=== PATIENT | male | born 1985 | race Hispanic/Latino ===

== ENCOUNTER 2019-10-11 16:29 | Emergency (ER) | payer SELFPAY ==
--- NOTE | 2019-10-11 17:31 | ER ---
Nurse's Notes [facility] Name: Edward Kang Jr Age: 33 yrs Sex: Male : 1985 Arrival Date: 10/11/2019 Time: 16:30 Bed 17 Private MD: Diagnosis: Dental Pain Presentation: 10/10 16:37 Chief complaint: Patient states: "toothache, i was going to call the dentist, but i jd3 know if i got antibiotics it would go away.". Coronavirus screen: Client denies travel out of the [place] in the last 14 days. At this time, the client does not indicate any symptoms associated with coronavirus-19. Ebola Screen: Patient negative for fever greater than or equal to 101.5 degrees Fahrenheit, and additional compatible Ebola Virus Disease symptoms. Initial Sepsis Screen: Does the patient meet any 2 criteria? No. Patient's initial sepsis screen is negative. Does the patient have a suspected source of infection? No. Patient's initial sepsis screen is negative. Risk Assessment: Do you want to hurt yourself or someone else? Patient reports no desire to harm self or others. Onset of symptoms was October 11, 2019. 16:37 Method Of Arrival: Ambulatory jd3 16:37 Acuity: DANAE 4 jd3 Triage Assessment: 17:40 EENT: Reports. ca1 Historical: - Allergies: 16:40 No Known Allergies; jd3 - Home Meds: 16:40 None [Active]; jd3 - PMHx: 16:40 None; jd3 - PSHx: 16:40 None; jd3 - Immunization history:: Adult Immunizations up to date. - Social history:: Smoking status: Patient/guardian denies using tobacco, Stopped _ months ago 6. Screenin:20 Abuse screen: Denies threats or abuse. Denies injuries from another. Nutritional ca1 screening: No deficits noted. Tuberculosis screening: No symptoms or risk factors identified. Fall Risk None identified. Assessment: 17:20 Pain: Complains of pain in upper left second molar and upper left third molar Pain ca1 began 2-3 days ago. Neuro: Level of Consciousness is awake, alert, obeys commands, Oriented to person, place, time, situation. EENT: Dental caries noted in upper left second molar (#15). Derm: Skin is intact, is healthy with good turgor, Skin is pink, warm \\T\\ dry. Musculoskeletal: Circulation, motion, and sensation intact. Capillary refill < 3 seconds. 17:22 General: Appears in no apparent distress. comfortable, Behavior is calm, cooperative, ca1 appropriate for age. Vital Signs: 16:37 BP 124 / 80; Pulse 69; Resp 15; Temp 98.7; Pulse Ox 98% ; Weight 86.18 kg; Height 6 ft. jd3 (182.88 cm); Pain 8/10; 17:20 BP 107 / 72; Pulse 51; Resp 16 S; Pulse Ox 98% on R/A; ca1 16:37 Body Mass Index 25.77 (86.18 kg, 182.88 cm) j ED Course: 12:55 Patient has correct armband on for positive identification. Bed in low position. Call ca1 light in reach. Side rails up X 1. Pulse ox on. NIBP on. 16:30 Patient arrived in ED. ag5 16:40 Triage completed. jd3 16:41 Arm band placed on. [facility] 16:50 Mikel Baez PA is PHCP. [facility] 16:50 Carlos Massey MD is Attending Physician. [facility] 17:38 Mackenzie Keita RN is Primary Nurse. ca1 17:40 No provider procedures requiring assistance completed. Patient did not have IV access ca1 during this emergency room visit. Administered Medications: No medications were administered Outcome: 17:30 Discharge ordered by . [facility] 17:40 Discharged to home ambulatory. ca1 17:40 Condition: stable 17:40 Discharge instructions given to patient, Instructed on discharge instructions, follow up and referral plans. medication usage, Demonstrated understanding of instructions, follow-up care, medications, Prescriptions given X 2. 17:42 Patient left the ED. ca1 Signatures: Mikel Baez PA PA jmm Davies, Jonathon, RN RN Mackenzie Chaparro RN RN ca1 Reilly Smith ag5 Corrections: (The following items were deleted from the chart) 17:41 12:55 General: Appears in no apparent distress. comfortable, Behavior is calm, ca1 cooperative, appropriate for age, ca1 17:41 12:55 Pain: Complains of pain in upper left second molar and upper left third molar ca1 Pain began 2-3 days ago. ca1 17:41 12:55 Neuro: Level of Consciousness is awake, alert, obeys commands, Oriented to ca1 person, place, time, situation, ca1 17: 12:55 EENT: Dental caries noted in upper left second molar (#15) ca1 ca1 17: 12:55 Derm: Skin is intact, is healthy with good turgor, Skin is pink, warm \\T\\ dry. ca1 ca1 17: 12:55 Musculoskeletal: Circulation, motion, and sensation intact. Capillary refill < 3 ca1 seconds, ca1 17: 12:55 Pain: Complains of pain in upper left second molar and upper left third molar ca1 Pain began 2-3 days ago. ca1 17: 12:55 Abuse screen: Denies threats or abuse. Denies injuries from another. ca1 ca1 17 12:55 Nutritional screening: No deficits noted. ca1 ca1 17: 12:55 Tuberculosis screening: No symptoms or risk factors identified. ca1 ca1 17: 12:55 Fall Risk None identified. ca1 ca1
--- NOTE | 2019-10-11 17:31 | EDPHYS ---
Physician Documentation [facility] Name: Edward Kang Jr Age: 33 yrs Sex: Male : 1985 Arrival Date: 10/11/2019 Time: 16:30 Bed 17 Private MD: ED Physician Carlos Massey HPI: 10/10 17:18 This 33 yrs old Male presents to ER via Ambulatory with complaints of jmm Toothache. 17:18 The patient presents with pain, swelling. Onset: The symptoms/episode began/occurred jmm gradually, 4 day(s) ago. Duration: The symptoms are continuous. Modifying factors: The symptoms are alleviated by nothing, the symptoms are aggravated by nothing. This is a 33 year old male with no chronic medical conditions that presents to the ED with complants of dental pain for the past 4 days. Denies fever. Has appt scheduled with dentist later in the week. . Historical: - Allergies: 16:40 No Known Allergies; jd3 - Home Meds: 16:40 None [Active]; jd3 - PMHx: 16:40 None; jd3 - PSHx: 16:40 None; jd3 - Immunization history:: Adult Immunizations up to date. - Social history:: Smoking status: Patient/guardian denies using tobacco, Stopped _ months ago 6. ROS: 17:18 Constitutional: Negative for fever, chills, and weight loss. jmm 17:18 Cardiovascular: Negative for chest pain, palpitations, and edema, Respiratory: Negative for shortness of breath, cough, wheezing, and pleuritic chest pain. 17:18 ENT: Positive for dental pain. 17:18 All other systems are negative. Exam: 17:18 Constitutional: This is a well developed, well nourished patient who is awake, alert, jmm and in no acute distress. Head/Face: atraumatic. Eyes: EOMI, no conjunctival erythema appreciated 17:18 Neck: Trachea midline, Supple Chest/axilla: Normal chest wall appearance and motion. Cardiovascular: Regular rate and rhythm. No edema appreciated Respiratory: Normal respirations, no respiratory distress appreciated Abdomen/GI: Non distended, soft Back: Normal ROM Skin: General appearance color normal MS/ Extremity: Moves all extremities, no obvious deformities appreciated, no edema noted to the lower extremities Neuro: Awake and alert, normal gait Psych: Behavior is normal, Mood is normal, Patient is cooperative and pleasant 17:18 ENT: Dental exam: gum swelling, that is moderate, specifically in the upper right first molar (#3), upper right second bicuspid (#4), upper left first molar (#14), upper left second molar (#15), lower left second molar (#18) and lower left first molar (#19). Vital Signs: 16:37 BP 124 / 80; Pulse 69; Resp 15; Temp 98.7; Pulse Ox 98% ; Weight 86.18 kg; Height 6 ft. jd3 (182.88 cm); Pain 8/10; 17:20 BP 107 / 72; Pulse 51; Resp 16 S; Pulse Ox 98% on R/A; ca1 16:37 Body Mass Index 25.77 (86.18 kg, 182.88 cm) jd3 MDM: 17:18 Patient medically screened. [facility] 17:28 Data reviewed: vital signs, nurses notes. Counseling: I had a detailed discussion with vinny the patient and/or guardian regarding: the historical points, exam findings, and any diagnostic results supporting the discharge/admit diagnosis, the need for outpatient follow up, to return to the emergency department if symptoms worsen or persist or if there are any questions or concerns that arise at home. Administered Medications: No medications were administered Disposition: 10/11 08:56 Co-signature as Attending Physician, Carlos Massey MD I agree with the assessment and [facility] plan of care. Disposition: 10/11/19 17:30 Discharged to Home. Impression: Dental Pain. - Condition is Stable. - Discharge Instructions: Dental Pain. - Prescriptions for Amoxicillin 875 mg Oral Tablet - take 1 tablet by ORAL route every 12 hours for 10 days; 20 tablet. Peridex 0.12 % Mucous Membrane mouthwash - place 15 milliliter by MUCOUS MEMBRANE route 2 times per day after brushing teeth, swish in mouth for 30 seconds then spit out; 1 bottle. - Medication Reconciliation Form, Thank You Letter, Antibiotic Education, Prescription Opioid Use form. - Follow up: Private Physician; When: 2 - 3 days; Reason: Recheck today's complaints, Continuance of care, Re-evaluation by your physician. Signatures: Carlos Massey MD MD cha Mickail, Joel, PA PA jmm Davies, Jonathon RN RN jd3 Mackenzie Keita RN RN ca1 Corrections: (The following items were deleted from the chart) 10/10 17:42 17:30 10/11/2019 17:30 Discharged to Home. Impression: Dental Pain. Condition is ca1 Stable. Forms are Medication Reconciliation Form, Thank You Letter, Antibiotic Education, Prescription Opioid Use. Follow up: Private Physician; When: 2 - 3 days; Reason: Recheck today's complaints, Continuance of care, Re-evaluation by your physician. vinny
== END 2019-10-11 17:42 | disposition home or self-care (01) ==
LOC: ER 16:29
DX: K08.89 Other specified disorders of teeth and supporting structures (principal)
CPT/HCPCS: 99283